=== PATIENT | female | born 1955 | race Two or more races ===

== ENCOUNTER 2017-08-04 13:55 | Emergency (ER) | payer BC, OTHER ==
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
[2017-08-04] MEDS ORDERED: CYCLOBENZAPRINE HCL 10 MG TABLET PO ONE (15:59)
[2017-08-04] MEDS ORDERED: IBUPROFEN 600 MG TABLET PO ONE (15:59)
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
[2017-08-04 16:07] VITALS: BP 145/89
== END 2017-08-04 16:40 | disposition home or self-care (01) ==
LOC: ER 13:55
DX: S16.1XXA Strain of muscle, fascia and tendon at neck level, initial encounter (principal); M54.5 Low back pain; V89.2XXA Person injured in unspecified motor-vehicle accident, traffic, initial encounter; E07.9 Disorder of thyroid, unspecified; I10 Essential (primary) hypertension; Z88.3 Allergy status to other anti-infective agents; Z98.51 Tubal ligation status
CPT/HCPCS: 72125; 99283

== ENCOUNTER → 2017-08-18 | Outpatient (CLI) | payer BC ==
--- NOTE | 2017-08-18 15:59 | RADIOLOGY REPORT (SQ) ---
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 LIMITATIONS: None. FINDINGS: ALIGNMENT: Minimal reversal the normal cervical lordotic curve. VERTEBRAE: Chronic well corticated changes of C2 T either long-standing posttraumatic or congenital o s odontoid . BONE MARROW: Normal. No marrow replacement or reactive changes. DISCS: Normal. No significant abnormal signal or loss of height. HARDWARE: None in the spine. CORD AND BASE OF BRAIN: Normal in size and signal intensity. SOFT TISSUES: There is a 3.4 x 3.4 x 3.9 cm irregular soft tissue mass in the left lobe of the thyroi d gland. C1-C2: No significant spinal stenosis. C2-C3: No significant spinal stenosis or exit foraminal stenosis. C3-C4: Central disc osteophyte complex with minimal anterior flattening of the thecal sac. C4-C5: Disc osteophyte complex with mild anterior flattening of the thecal sac. C5-C6: Central disc osteophyte complex. C6-C7: No significant spinal stenosis or exit foraminal stenosis. C7-T1: No significant spinal stenosis or exit foraminal stenosis. UPPER THORACIC: Incompletely imaged. No significant spinal stenosis or exit foraminal stenosis. OTHER: No other significant finding. IMPRESSION: Post traumatic or congenital changes of C2 without an active process. Mild degenerative changes without spinal stenosis or exit foraminal stenosis. Large mass in the left lobe of the thyroid gland. COMMENT: Dedicated thyroid ultrasound. TECHNICAL DOCUMENTATION: JOB ID: [id number] [employer]- All Rights Reserved Reading location - IP/workstation name: [email or web address]
== END ==
LOC: RAD 14:06
PROVIDERS: ATTEND Family Medicine
DX: Q76.49 Other congenital malformations of spine, not associated with scoliosis (principal)
CPT/HCPCS: 72141

== ENCOUNTER → 2017-08-20 | Outpatient (CLI) | payer BC ==
[2017-08-20 17:48] LABS: THYROID STIMULATING HORMONE 1.41 uIU/mL (0.47-4.68)
== END ==
LOC: LAB 16:17
PROVIDERS: ATTEND Family Medicine
DX: E04.1 Nontoxic single thyroid nodule (principal)
CPT/HCPCS: 36415; 84439; 84443

== ENCOUNTER → 2017-08-20 | Outpatient (CLI) | payer BC ==
--- NOTE | 2017-08-21 09:48 | RADIOLOGY REPORT (SQ) ---
EXAM DESCRIPTION: U/S THYROID/SFT TISS HD NECK COMPLETED DATE/TIME: 08/20/2017 5:36 pm REASON FOR STUDY: LT THYROID NODULES SEEN ON CT E04.1 NONTOXIC SINGLE THYROID NODULE COMPARISON: MRI cervical spine 08/18/2017 CT cervical spine 08/04/2017 TECHNIQUE: Dynamic and static rowe-scale images acquired of the thyroid gland. Selected additional c olor/power Doppler images recorded. All images stored to PACS. LIMITATIONS: None. FINDINGS: The right lobe thyroid measures 3.8 x 1.4 x 1.1 cm in size. Homogeneous [place] with a 1.2 x 1.1 cm solid nodule in the right midpole gland. The left lobe thyroid is 4.9 x 3.9 x 2.6 cm in size, near completely replaced with a complex mixed cy stic and solid nodule measuring about 4.9 x 3 cm in size. The isthmus is normal thickness. No nodules. IMPRESSION: Left lobe thyroid near completely replaced with a complex mixed cystic and solid mass, c alcifications are noted by CT. Ultrasound-guided Biopsy of this lesion is recommended TECHNICAL DOCUMENTATION: JOB ID: [id number] [employer]- All Rights Reserved Reading location - IP/workstation name: [email or web address]
== END ==
LOC: RAD 16:53
PROVIDERS: ATTEND Family Medicine
DX: E04.1 Nontoxic single thyroid nodule (principal)
CPT/HCPCS: 76536

== ENCOUNTER → 2017-09-13 | Outpatient (CLI) | payer BC ==
[2017-09-13 16:29] LABS: FREE T3 4.38 pg/mL (2.77-5.27); FREE T4 (FREE THYROXINE) 0.87 ng/dL (0.78-2.19)
[2017-09-13 16:42] LABS: THYROID STIMULATING HORMONE 1.6 uIU/mL (0.47-4.68)
[2017-09-15 07:19] LABS: THYROGLOBULIN AB <1.0 IU/mL (0.0-0.9); THYROID PEROXIDASE (TPO) AB 7 IU/mL (0-34)
== END ==
LOC: OD 15:23
PROVIDERS: ATTEND Surgery
DX: E04.1 Nontoxic single thyroid nodule (principal)
CPT/HCPCS: 36415; 84439; 84443; 84481; 86376; 86800

== ENCOUNTER → 2019-12-16 | Outpatient (CLI) | payer BC ==
[2019-12-16 15:56] VITALS: BP 138/86
--- NOTE | 2019-12-16 15:56 | ER RDC ASSESSMENT REPORT ---
Intake - In the Last 14 days Have you traveled outside [place]?: Yes --City/State: Traveled to [place]. for mother. --Country (if outside [place]) [RDCEXP2]: Patient traveled to [facility] Have you been in close contact with someone CONFIRMED: No - Symptoms Subjective Fever([place] feverish): No Chills: No Muscule Aches: Yes Runny Nose: Yes Sore Throat: No Cough (New or worsening chronic cough): No Shortness of breath: No Nausea or Vomiting: No Headache: Yes Abdominal Pain: No Diarrhea(3 or more loose stools in last 24 hours): Yes - Do you have any of the following Chronic lung disease: Asthma or emphysema or COPD: No Cystic Fibrosis: No Diabetes: No High Blood Pressure: Yes Cardiovascular Disease: Yes Chronic Kidney Disease: No Chronic Liver Disease: No Chronic blood disorder like Sickle Cell Disease: No Weak immune system due to disease or medication: No Neurologic condition that limits movement: Yes Neurological Condition Comment: hx of migraines Developmental delay - Moderate to Severe: No Recent (within past 2 weeks) or current : No Morbid Obesity (>100 pounds over ideal weight): No Obesity Comment: Height 4 feet 10 inches weight 112 pounds - Objective Temperature: 96.8 F Pulse Rate: 80 Respiratory Rate: 16 Blood Pressure: 138/86 O2 Sat by Pulse Oximetry: 97 Objective: Given above, testing performed: If Testing Performed: Test Specimen Type Sent to General - General Information source: Patient Notes: In here at [facility] for COVID testing. Recently seen at PCP Dr. Rao's office for ongoing upper respiratory symptoms muscle aches runny nose headache and diarrhea reports symptoms started as early as November 30 with a runny nose runny nose continues and then the other symptoms started a week later. Patient did travel to [place] for mother's . 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 Patient denies being in contact with anyone known positive for COVID - Related Data Allergies/Adverse Reactions: erythromycin base [Erythromycin Base] Allergy (Mild, Verified 08/04/17 13:59) Past Medical History - General Information source: Patient - Social History Smoking Status: Never Smoker Family History: COPD, CVA, Hypertension - Past Medical History Cardiac Medical History: Reports: Hx Hypertension - DX TWO YEARS AGO Neurological Medical History: Reports: Hx Migraine Renal/ Medical History: Denies: Hx Peritoneal Dialysis Past Surgical History: Reports: Hx Breast Surgery - cyst removed, Hx Cardiac Catheterization, Hx Tubal Ligation. Denies: Hx Adenoidectomy Physical Exam - General General appearance: Appears well, Alert In distress: None Notes: PHYSICAL EXAMINATION: GENERAL: Well-appearing and in no acute distress. HEAD: Atraumatic, normocephalic. EYES: sclera anicteric, conjunctiva are normal. ENT: nares patent. Moist mucous membranes. NECK: Normal range of motion, supple without lymphadenopathy LUNGS: CTAB and equal. No wheezes rales or rhonchi. resp even and unlabored. Lung sounds clear. HEART: Regular rate and rhythm without murmurs ABDOMEN: Soft, nontender, normal bowel sounds, no guarding. EXTREMITIES: Normal range of motion, no pitting edema. No cyanosis. NEUROLOGICAL: Normal speech. PSYCH: Normal mood, normal affect. SKIN: Warm, Dry, normal turgor, Diagnostic Results Laboratory Results: Informed of negative rapid strep and negative rapid flu results. Pending strep culture pending cover testing results. Provided instructions regarding COVID to include: As a person under investigation for Covid 19, the [place] department of Health and Human Services, division of public health advises you to adhere to the following guidance until your test results are reported to you. If your test result is positive, you will receive additional information from your provider and your local health department at that time. Remain at home until you are cleared by the health provider or public health authorities. Keep a log of visitors to your home, notify any visitors to your home of your isolation status. If you plan to move to a new address or leave the formerly [facility], notify the local health department in your County. Call your doctor or seek care if you have an urgent medical need. Before seeking medical care, call ahead to get instructions from the provider before arriving at the medical office clinic or hospital. Notify them that you are being tested for the virus that causes Covid 19 so that arrangements can be made, as necessary, to prevent transmission to others in the healthcare setting. Next, notify the local health department in your county. If a medical emergency arises and you need to call 911, inform the first responders that you are being tested for the virus that causes Covid 19. Next, notify the local health department in your county. Patient Education/Counseling Counseling/Education: Patient presents with upper respiratory symptoms worrisome for possible Covid 19. Patient does not have emergency worring symptoms such as difficulty breathing, shortness of breath, chest pain, pressure, confusion or cyanosis. Patient appears suitable for discharge. Patient instructed to follow up with PCP Dr. Rao. To ED for persistent or worsening symptoms. Patient's vital signs are stable and patient is nontoxic in appearance. Good return precautions have been discussed with patient, patient verbalized understanding and is agreeable with discharge plan of care at this time. RDC Discharge - Discharge Clinical Impression: Encounter for screening laboratory testing for COVID-19 virus Upper respiratory infection Qualifiers: URI type: unspecified URI Qualified Code(s): J06.9 - Acute upper respiratory infection, unspecified Condition: Stable Disposition: Home; Selfcare
[2019-12-16 16:09] LABS: A TYPE INFLUENZA AG NEGATIVE (NEGATIVE)
[2019-12-16 16:10] LABS: B INFLUENZA AG NEGATIVE (NEGATIVE)
== END ==
LOC: RDC 15:03
PROVIDERS: ATTEND Nurse Practitioner Family
DX: J06.9 Acute upper respiratory infection, unspecified (principal); Z20.828 Contact with and (suspected) exposure to other viral communicable diseases; R09.89 Other specified symptoms and signs involving the circulatory and respiratory systems; M79.10 Myalgia, unspecified site; R51 Headache; R19.7 Diarrhea, unspecified; I10 Essential (primary) hypertension; Z88.1 Allergy status to other antibiotic agents
CPT/HCPCS: 87070; 87880; 87635; 87804; 99201; 99211; C9803

== ENCOUNTER → 2020-05-18 | Outpatient (CLI) | payer BC ==
[~2020-05-18] MED LIST: COVID-19 VACCINE (PFIZER)/PF 30 MCG/0.3 ML VIAL IM ONE; EPINEPHRINE INJ/PF 1 MG/1 ML AMPULE IM PRN
== END ==
LOC: EMPHEALTH 15:27
PROVIDERS: ATTEND Internal Medicine
DX: Z23 Encounter for immunization (principal)
CPT/HCPCS: 91300

== ENCOUNTER → 2020-06-08 | Outpatient (CLI) | payer BC | LOC: EMPHEALTH 14:54 | PROVIDERS: ATTEND Internal Medicine | DX: Z23 Encounter for immunization (principal) | CPT/HCPCS: 91300 ==